=== PATIENT | female | born 1940 | race Caucasian/White ===

== ENCOUNTER 2016-07-25 12:39 | Emergency (ER) | payer MEDICARE ==
[~2016-07-25] VITALS: Ht 160 cm; Wt 53.6 kg
[~2016-07-25 12:39] MED LIST: ACYC400T2 PO; ALBU8.5H2 IH; BECL8.7A5 INH; CYCL10TA9 PO; HYDR-4003 PO; HYDR-656 PO; LACT1CAP65 PO; LAMO25TA PO; LOPE2CAP PO; MULT1CAP33 PO; NAPR220C11 PO; POTA99TA21 PO; RANI-426 PO
[2016-07-25 12:51] VITALS: BP 147/80; PULSE 76; RESP 14; O2SAT 98
--- NOTE | 2016-07-25 14:08 | ED.REPORT ---
HPI-Head Prob / Injury Date of Service Jul 25, 2016 ED Provider: Dr. Barnes Pt is a 75 year old female with a hx of osteoporosis and chronic neck pain presenting to the ED after she went to sit on a chair and the chair slid so she missed it at 1030 this morning. She came down and landed on her bottom, then hit the back of her head on the door. Pt reports that she feels okay at the moment, only complains of neck pain, and denies headache, nausea, vomiting, change in LOC or any other symptoms at this time. She takes Ranidine, hydrocodone, Aleve and lamotrigine. Nursing Notes Stated Complaint: FELL/HIT HEAD Chief Complaint: Head, Face, Neck Trauma Nursing Notes Reviewed: Yes ([email or web address], [email or web address] not reconciled) Allergies: Coded Allergies: citalopram (Verified Allergy, Unknown, elevated liver enzymes, 04/30/15) morphine (Verified Allergy, Unknown, ITCH, 04/30/15) oxycodone (Verified Allergy, Unknown, RASH, 04/30/15) Scheduled Lactobacillus Acidophilus (Probiotic) 1 Each Capsule 1 EACH PO DAILY Lamotrigine (Lamotrigine) 25 Mg Tablet 25 MG PO DAILY Multivitamin (Multivitamins) 1 Each Capsule 1 EACH PO DAILY Naproxen Sodium (Aleve) 220 Mg Capsule 2 TAB PO BID Potassium Gluconate (Potassium) 99 Mg Tablet 99 MG PO DAILY Ranitidine (Ranitidine) 75 Mg Tablet 75 MG PO HS Scheduled PRN Acyclovir (Acyclovir) 400 Mg Tablet 400 MG PO BID PRN PRN COLD SORES Albuterol HFA (Proair HFA) 8.5 Gm Hfa.aer.ad 1-2 PUFFS IH Q4-6H PRN PRN For Shortness of Breath Beclomethasone Dipropionate (Qvar) 8.7 Gm Aer.w.adap 2 PUFF INH BID PRN PRN For Shortness of Breath Cyclobenzaprine (Cyclobenzaprine) 10 Mg Tablet 10 MG PO TID PRN PRN For Spasm Hydrocodone-Acetaminophen 5-325 mg (Hydrocodone-Acetaminophen 5-325 mg) 1 Each Tablet 1 TAB PO Q6H PRN PRN For Pain Loperamide (Loperamide) 2 Mg Capsule 2 MG PO PRN PRN PRN For Diarrhea or Loose Stool 2 CAPSULE PO AFTER 1ST LOOSE STOOL, FOLLOWED BY 1 CAPSULE AFTER EACH SUBSEQUENT LOOSE STOOL NTE 16MG/DAY hydrOXYzine Hcl (HydrOXYzine Hcl) 25 Mg Tablet 1-2 TAB PO Q4-6H PRN PRN For Nausea/Vomiting General Time Seen by Provider: 14:10 Chief Complaint Blunt head trauma Hx Obtained From: Patient Arrived By: Walk-in Onset Occurred: 1 - 4 hours ago Symptom Duration: Since onset Progression Since Onset: Constant Caused by: Fall from (Ground) Location: : Neck Severity: Current: Moderate Severity: Maximum: Severe Recent Healthcare: No recent doctor visit, No recent hospitalization Similar Sx Previous: No Risk-Head Prob / Injury )( IC Bleed Risk Strat Age (<1 yr or >60 yrs)No Blood thinners, No Coagulation disorder, No EtOH use, No Prior epidural bleed RF Statements: Risk factors reviewed Nexus C-Spine Criteria No post midline tendernes, Not intoxicated, Normal level or alertness, No focal neuro deficits, No distracting injuries Past Medical History Past Medical History Hepatitis. Osteoporosis. Reactive airway disease. Neck pain. Arthritis. Adjustment disorder with depressed mood Past Surgical History Gastroplasty for weight loss in 1984. Demetri-en-y gastric bypass, 1991. Cholecystectomy. Hysterectomy. Kidney stone removal. Smoking History Never Smoker Ambulatory Status Independent Review of Systems GI: Denies: Nausea, Vomiting Musculoskeletal: Reports: Neck pain Neurologic: Denies: Change LOC, Headache Complete sys rev & neg: except as marked. Physical Exam Initial Vital Signs Vital Signs (First) Date Time Temp Pulse Resp B/P Pulse Ox O2 Delivery O2 Flow Rate FiO2 07/25/16 12:51 36.2 76 14 147/80 98 Room Air Initial VS: Reviewed, Vital signs normal Respiratory: Breath sounds normal, Clear to auscultation, No respiratory distress Cardiovascular: Regular rate & rhythm, Heart sounds normal, Intact distal pulses Abdomen / GI: Soft, Non-tender, No guarding, No rebound, No distention Psychiatric: Mood/affect normal, Behavior normal, Normal thought content General/Constitutional: Awake, Alert, No acute distress, Well appearing Pt is joking, alert, energetic and appears well. Head / Eyes: Atraumatic, Normocephalic, PERRL, EOMI No head hematoma ENT: Atraumatic, Airway patent, Mucous membranes moist, Pharynx NL Neck: Atraumatic, Supple, No meningismus, Full range of motion, No adenopathy Mild cervical tenderness Neurologic: Oriented X3, Speech NL, No motor deficits, No sensory deficits, CN II - XII intact, Cerebellar NL Skin: Atraumatic, Color NL, Warm, Dry, Intact Bruising in the arms and legs which are old. Interpretation & Diagnostics CT Head Interpretation IMPRESSION: No acute intracranial disease process. Dictated by: Heidi Shea MD, PhD on 07/25/2016 at 14:46 Interpretation / Wet Read by: Interpret - Radiologist Re-Eval/Medical Decision Med Decision/Clinical Course This is a 75-year-old female presents after ground-level fall with a chair and moved the way she fell back and struck her head hard and she reported it made a loud noise, and she has some soreness of the head and cervical spine. She when asked that a headache she says no, but once the occiput and says that it is uncomfortable. She denies numbness weakness paresthesias, nausea vomiting. She denies any recent injuries. She does have a few scattered bruises on arms and legs she says is her chronic and she "bruises easily. She is not on any anticoagulants. She appears well, is alert oriented [place] Coma Scale 15, no other findings were evident on exam. Given her age, CT imaging was obtained and was negative for acute pathology. Reassurance provided. Routine precautions reviewed. Patient is discharged in good condition. Source of Hx: Old records Differential Diagnosis: Positive: Blunt head trauma, Negative: Abrasion, Basilar skull fracture, Cervical spine injury, Closed head injury, Gun shot wound head, Penetrating head injury, Scalp laceration, Seizure, Skull fracture, Subdural hematoma Counseled Regarding: Diagnosis, Lab results, Need for follow-up, When/why to return to ED Discharge & Departure Primary Impression: Blunt head trauma Encounter type: initial encounter Qualified Code: S09.8XXA - Other specified injuries of head, initial encounter Additional Impressions: Cervical strain Encounter type: initial encounter Qualified Code: S16.1XXA - Strain of muscle, fascia and tendon at neck level, initial encounter Fall from ground level Disposition: Home All VS Reviewed: Yes Condition: Improved Referrals: Lissy Villalpando (PCP) Scribe Attestation Portions of this note were transcribed by Juana Hall. IDr. Barnes personally performed the history, physical exam and medical decision-making; I reviewed and confirmed the accuracy of the information in the transcribed note. Signed by: Lorna Khoury, 07/25/2016 at 1501. copies to: Lissy Villalpando Matthew F MD Jul 25, 2016 14:08 JUANA HALL Jul 25, 2016 14:17
--- NOTE | 2016-07-25 14:50 | DRSVH ---
PROCEDURE: CT BRAIN WITHOUT CONTRAST ([id number]) INDICATIONS: fall pain TECHNIQUE: Noncontrast 4.5 mm thick angled axial sections acquired from the foramen magnum to the vertex, with c oronal reformats. COMPARISON: None. FINDINGS: Image quality: Excellent. CSF spaces: Basal cisterns are patent. No extra-axial fluid collections. The ventricles are symmet lloyd in size and shape. Brain: No intracranial bleeds or masses. There is cerebral volume loss for age, with resultant vent ricular and sulcal prominence. There are periventricular and deep white matter chronic small vessel ischemic changes. There is intracranial internal carotid artery and vertebral artery atherosclerosis . Skull and face: Calvarium and visualized facial bones appear intact, without suspicious lesions. Sinuses: Visualized sinuses and mastoids are clear. IMPRESSION: No acute intracranial disease process. Dictated by: Heidi Shea MD, PhD on 07/25/2016 at 14:46 Approved by: Heidi Shea MD, PhD on 07/25/2016 at 14:49
[2016-07-25 15:05] VITALS: BP 139/75; PULSE 62; O2SAT 100
--- NOTE | 2016-07-25 15:26 | DRSVH ---
PROCEDURE: CT CERVICAL SPINE WITHOUT CONTRAST ([id number]) INDICATIONS: fall pain TECHNIQUE: Noncontrast 3 mm thick sections acquired from the skull base to the T4 level. Sagittal and coronal r eformats were then constructed. For radiation dose reduction, the following was used: automated exp osure control, adjustment of mA and/or kV according to patient size. COMPARISON: [facility], MR, CERVICAL SPINE W/O CONTRAST, 07/27/2013, 16:16. FINDINGS: Image quality: Diagnostic. Bones: On the sagittal images, the cervicothoracic junction is adequately visualized and the alignmen t through this region is within normal limits. Additionally, the craniocervical junction and atlanto axial joint are intact. The odontoid is also intact. The vertebral body heights and prevertebral so ft tissues are within normal limits throughout the cervical spine without evidence to suggest acute c ompression fracture. The bone mineralization is decreased. Moderate degenerative changes of the cervical spine are most pronounced at the level of C5-6 with pro minent disc height loss, disc osteophyte complexes, and facet arthropathy. Additional areas of moder ate facet arthropathy are noted throughout the cervical spine. There is grade 1 anterolisthesis of C 4 on C5. Soft tissues: No prevertebral soft tissue swelling. The imaged overlying soft tissues of the neck a re within normal limits. IMPRESSION: 1. No acute fracture of the cervical spine. 2. At least moderate degenerative changes of the cervical spine are most pronounced at the level of C5-6. 3. Osteopenia. Dictated by: Jean Paul Mionr M.D. on 07/25/2016 at 14:19 Approved by: Jean Paul Minor M.D. on 07/25/2016 at 14:25
[2016-07-25 15:51] VITALS: BP 139/75; PULSE 62; RESP 14; O2SAT 100
== END 2016-07-25 15:45 | disposition home or self-care (01) ==
LOC: SED 12:39
DX: S16.1XXA Strain of muscle, fascia and tendon at neck level, initial encounter (principal); S09.90XA Unspecified injury of head, initial encounter; W18.39XA Other fall on same level, initial encounter; Y93.89 Activity, other specified; Y92.89 Other specified places as the place of occurrence of the external cause; Y99.8 Other external cause status; J45.909 Unspecified asthma, uncomplicated; Z88.5 Allergy status to narcotic agent; Z88.8 Allergy status to other drugs, medicaments and biological substances